=== PATIENT | male | born 1955 | race Caucasian/White ===

== ENCOUNTER → 2019-12-28 10:00 | Outpatient (CLI) | payer OTHER, SELFPAY ==
[2019-12-28 11:46] LABS: 585 Gram Check PASS; Zero Check Sebra Scale PASS
[2019-12-28 11:47] LABS: Dizziness NO; Postdiastolic BP 78; Postsystolic BP 137; Prediastolic 84; Presystolic 144; Pulse 74; Site of phlebotomy RAC; Swelling NO; Therapeutic Phleb Comment NO COMMENT
== END ==
PROVIDERS: PCP Internal Medicine; Referring Provider Internal Medicine; Visit Provider Internal Medicine
DX: E83.119 Hemochromatosis, unspecified (principal)
CPT/HCPCS: 99195

== ENCOUNTER → 2020-07-08 10:41 | Outpatient (CLI) | payer MEDICARE, OTHER, SELFPAY ==
--- NOTE | 2020-07-08 10:48 | DI.US.S_ITS ---
PROCEDURE: US ABD AORTA ANEURYSM SCREEN INDICATIONS: CARDIOVASCULAR SCREENING TECHNIQUE: Real time scanning was performed of the aorta and iliac arteries, with image documentation. COMPARISON: None. FINDINGS: Aorta: Proximal aortic diameter measures 2.5 cm. Mid-aorta measures 1.9 cm. Distal aortic diameter is 1.8 cm. Iliac arteries: Right common iliac artery measures 1.2 cm. Left common iliac artery measures 1.2 cm. IMPRESSION: No abdominal aortic or proximal common iliac artery aneurysm. Dictated by: Ha Alvarado [facility] Interpreted: Arsen Jones MD on 07/09/2020 at 16:52 Approved by: Arsen Jones M.D. on 07/09/2020 at 17:54
== END ==
PROVIDERS: PCP Internal Medicine; Referring Provider Internal Medicine; Visit Provider Internal Medicine
DX: Z13.6 Encounter for screening for cardiovascular disorders (principal)
CPT/HCPCS: 76706

== ENCOUNTER → 2020-07-24 09:50 | Outpatient (CLI) | payer MEDICARE, OTHER, SELFPAY ==
[2020-07-24 10:37] LABS: Zero Check Sebra Scale PASS
[2020-07-24 10:38] LABS: 585 Gram Check PASS; Dizziness NO; Postdiastolic BP 78; Postsystolic BP 126; Prediastolic 83; Presystolic 141; Pulse 73; Site of phlebotomy LAC; Swelling NO; Therapeutic Phleb Comment NO COMMENT
[2020-07-24 12:55] LABS: Add Manual Diff / Slide Review NO; Basophils Absolute Auto 100 /uL (0-100); Basophils Percent Auto 1.6 % (0-2); Eosinophils Absolute Auto 400 /uL (0-450); Eosinophils Percent Auto 6.1 % (2-4); Hematocrit 44.7 % (41-53); Hemoglobin 15.4 g/dL (13.5-17.5); Lymphocytes Absolute Auto 1400 /uL (1100-4500); Lymphocytes Percent Auto 22.3 % (25-40); Mean Corpuscular HGB Conc 34.5 % (30-36); Mean Corpuscular Hemoglobin 30.1 PG (26-34); Mean Corpuscular Volume 87.2 fL (80-100); Monocytes Absolute Auto 500 /uL (0-900); Monocytes Percent Auto 8.6 % (3-14); Neutrophils Absolute Auto 3900 /uL (1500-7000); Neutrophils Percent Auto 61.4 % (50-75); Platelet Count 192 X10^3/uL (150-400); Red Blood Cell Count 5.13 X10^6/uL (4.5-5.9); Red Cell Distribution Width 13.9 % (11.6-14.8); White Blood Cell Count 6.3 X10^3/uL (4.5-11.0)
[2020-07-24 13:31] LABS: HEMOLYSIS < 15 (0-50); Iron 161 ug/dL (49-181)
[2020-07-24 13:42] LABS: Percent Iron Saturation 45 % (20-50); Total Iron Binding Capacity 357 ug/dL (261-462); Transferrin 268 mg/dL (206-381)
[2020-07-24 13:50] LABS: Prostate Specific Antigen Scrn 2.08 ng/mL (0.1-4.0)
[2020-07-24 13:54] LABS: Ferritin 73 ng/mL (18-464)
[2020-07-24 15:53] LABS: Hep C Virus Ab w/Reflex Quant NEGATIVE s/c (NEGATIVE)
== END ==
PROVIDERS: PCP Internal Medicine; Referring Provider Internal Medicine; Visit Provider Internal Medicine
DX: Z00.00 Encounter for general adult medical examination without abnormal findings (principal); E83.110 Hereditary hemochromatosis; Z12.5 Encounter for screening for malignant neoplasm of prostate
CPT/HCPCS: 82728; 83540; 83550; 85025; 86803; 99195; G0103

== ENCOUNTER → 2020-07-29 18:48 | Outpatient (ROUT) | payer MEDICARE, OTHER, SELFPAY ==
[2020-07-29 20:29] LABS: Ferritin 57 ng/mL (18-464)
== END ==
PROVIDERS: PCP Internal Medicine; Visit Provider Internal Medicine
DX: Z00.00 Encounter for general adult medical examination without abnormal findings (principal); E83.110 Hereditary hemochromatosis
CPT/HCPCS: 82728

== ENCOUNTER → 2020-12-22 19:25 | Outpatient (ROUT) | payer MEDICARE, OTHER, SELFPAY ==
[2020-12-22 20:09] LABS: Add Manual Diff / Slide Review NO; Basophils Absolute Auto 100 /uL (0-100); Basophils Percent Auto 1.2 % (0-2); Eosinophils Absolute Auto 400 /uL (0-450); Eosinophils Percent Auto 4.9 % (2-4); Hematocrit 44.4 % (41-53); Hemoglobin 15.3 g/dL (13.5-17.5); Lymphocytes Absolute Auto 1800 /uL (1100-4500); Lymphocytes Percent Auto 24.8 % (25-40); Mean Corpuscular HGB Conc 34.4 % (30-36); Mean Corpuscular Hemoglobin 29.6 PG (26-34); Monocytes Absolute Auto 500 /uL (0-900); Monocytes Percent Auto 7.5 % (3-14); Neutrophils Absolute Auto 4400 /uL (1500-7000); Neutrophils Percent Auto 61.6 % (50-75); Platelet Count 181 X10^3/uL (150-400); Red Blood Cell Count 5.16 X10^6/uL (4.5-5.9); Red Cell Distribution Width 14.6 % (11.6-14.8); White Blood Cell Count 7.2 X10^3/uL (4.5-11.0)
[2020-12-22 20:18] LABS: HEMOLYSIS < 15 (0-50); Iron 141 ug/dL (49-181)
[2020-12-22 20:19] LABS: Hemoglobin A1C% w Est Avg Glu 5.3 % (4.0-6.0)
[2020-12-22 20:22] LABS: Alanine Aminotransferase 34 IU/L (<50); Albumin 4.1 g/dL (3.5-5.0); Albumin Globulin Ratio 1.8 (1.0-2.8); Alkaline Phosphatase 54 U/L (38-126); Aspartate Aminotransferase 29 IU/L (17-59); BUN Creatinine Ratio 23.1 (6-22); Bilirubin Total 0.6 mg/dL (0.2-1.3); Blood Urea Nitrogen 25 mg/dL (9-20); Calcium 9.4 mg/dL (8.4-10.2); Carbon Dioxide 27 mmol/L (22-32); Chloride 106 mmol/L (98-107); Cholesterol 153 mg/dL (140-199); Estimated Glomerular Filt Rate > 60.0 mL/min (>60); Globulin 2.3 g/dL (1.7-4.1); Glucose 101 mg/dL (80-110); HDL Cholesterol 45 mg/dL (40-60); HEMOLYSIS < 15 (0-50); LDL Cholesterol Calculated 87 mg/dL (<100); Potassium 4.2 mmol/L (3.4-5.1); Sodium 136 mmol/L (137-145); Total Protein 6.4 g/dL (6.3-8.2); Triglycerides 104 mg/dL (35-150); Uric Acid 5.5 mg/dL (3.5-8.5)
[2020-12-22 20:31] LABS: Percent Iron Saturation 42 % (20-50); Total Iron Binding Capacity 332 ug/dL (261-462); Transferrin 227 mg/dL (206-381)
[2020-12-22 20:53] LABS: Prostate Specific Antigen Scrn 2.24 ng/mL (0.1-4.0)
[2020-12-22 20:57] LABS: Ferritin 92 ng/mL (18-464)
[2020-12-22 21:13] LABS: Hep C Virus Ab w/Reflex Quant NEGATIVE s/c (NEGATIVE)
== END ==
PROVIDERS: PCP Internal Medicine; Visit Provider Internal Medicine
DX: Z00.00 Encounter for general adult medical examination without abnormal findings (principal); E83.110 Hereditary hemochromatosis; E78.1 Pure hyperglyceridemia; R73.01 Impaired fasting glucose
CPT/HCPCS: 80053; 80061; 82728; 83036; 83540; 83550; 84550; 85025; 86803; G0103

== ENCOUNTER → 2021-07-29 11:17 | Outpatient (CLI) | payer MEDICARE, OTHER, SELFPAY ==
[2021-07-29 12:08] LABS: 585 Gram Check PASS; Dizziness NO; Postdiastolic BP 74; Postsystolic BP 119; Prediastolic 73; Presystolic 134; Pulse 68; Site of phlebotomy LAC; Swelling NO; Temperature 98.6; Therapeutic Phleb Comment NO COMMENT; Zero Check Sebra Scale PASS
== END ==
PROVIDERS: PCP Internal Medicine; Referring Provider Internal Medicine; Visit Provider Internal Medicine
DX: E83.110 Hereditary hemochromatosis (principal)
CPT/HCPCS: 99195

== ENCOUNTER → 2021-12-30 09:56 | Outpatient (CLI) | payer MEDICARE, OTHER, SELFPAY ==
[2021-12-30 10:32] LABS: 585 Gram Check PASS; Zero Check Sebra Scale PASS
[2021-12-30 10:33] LABS: Dizziness NO; Postdiastolic BP 84; Postsystolic BP 133; Prediastolic 85; Presystolic 141; Pulse 79; Site of phlebotomy LAC; Swelling NO; Temperature 98.3; Therapeutic Phleb Comment NO COMMENT
== END ==
PROVIDERS: PCP Internal Medicine; Referring Provider Internal Medicine; Visit Provider Internal Medicine
DX: E83.110 Hereditary hemochromatosis (principal)
CPT/HCPCS: 99195

== ENCOUNTER → 2022-01-26 15:03 | Outpatient (CLI) | payer MEDICARE, OTHER, SELFPAY ==
[2022-01-26 16:27] LABS: Add Manual Diff / Slide Review NO; Basophils Absolute Auto 100 /uL (0-100); Basophils Percent Auto 1.3 % (0-2); Eosinophils Absolute Auto 300 /uL (0-450); Eosinophils Percent Auto 4.7 % (2-4); Hematocrit 43.1 % (41-53); Hemoglobin 14.8 g/dL (13.5-17.5); Lymphocytes Absolute Auto 1500 /uL (1100-4500); Lymphocytes Percent Auto 22.3 % (25-40); Mean Corpuscular HGB Conc 34.2 % (30-36); Mean Corpuscular Hemoglobin 30.4 PG (26-34); Mean Corpuscular Volume 88.7 fL (80-100); Monocytes Absolute Auto 600 /uL (0-900); Monocytes Percent Auto 8.7 % (3-14); Neutrophils Absolute Auto 4200 /uL (1500-7000); Platelet Count 160 X10^3/uL (150-400); Red Blood Cell Count 4.86 X10^6/uL (4.5-5.9); Red Cell Distribution Width 14.6 % (11.6-14.8); White Blood Cell Count 6.6 X10^3/uL (4.5-11.0)
[2022-01-26 16:35] LABS: HEMOLYSIS < 15 (0-50); Iron 125 ug/dL (49-181)
[2022-01-26 16:46] LABS: Percent Iron Saturation 43 % (20-50); Total Iron Binding Capacity 293 ug/dL (261-462); Transferrin 230 mg/dL (206-381)
[2022-01-26 17:12] LABS: Ferritin 74 ng/mL (18-464)
== END ==
PROVIDERS: PCP Internal Medicine; Referring Provider Internal Medicine; Visit Provider Internal Medicine
DX: E83.110 Hereditary hemochromatosis (principal)
CPT/HCPCS: 36415; 82728; 83540; 83550; 85025

== ENCOUNTER → 2022-09-28 09:45 | Outpatient (CLI) | payer MEDICARE, OTHER, SELFPAY ==
[2022-09-28 10:41] LABS: 585 Gram Check PASS; Dizziness NO; Postdiastolic BP 82; Postsystolic BP 155; Prediastolic 84; Presystolic 139; Pulse 67; Site of phlebotomy LAC; Swelling NO; Temperature 98.1; Therapeutic Phleb Comment NO COMMENT; Zero Check Sebra Scale PASS
== END ==
PROVIDERS: PCP Internal Medicine; Referring Provider Internal Medicine; Visit Provider Internal Medicine
DX: E83.110 Hereditary hemochromatosis (principal)
CPT/HCPCS: 99195